=== PATIENT | female | born 1945 | race Hispanic/Latino ===

== ENCOUNTER 2017-02-14 08:20 | Outpatient (CLI) | payer MEDICARE, OTHER ==
--- NOTE | 2017-02-14 10:42 | Mammography Report ---
BONE DEXA:02/14/17 08:20:00 CLINICAL: Postmenopausal.History of left breast cancer and on aromatase inhibitor. TECHNIQUE: Two site bone DEXA performed on an [employer] scanner. FINDINGS: The average BMD of the lumbar spine L1-L4 is 0.790g/cm squared with a T-score of -2.3 and a Z-score of and a 0.2. The average BMD of the right hip is 0.812g/cm squared with a T-score of -1.1 and a Z-score of +0.5. IMPRESSION: WHO classification: Osteopenia with increased fracture risk based on both spine and right hip measurements. RECOMMENDATION: Clinical correlation and routine screening. DEFINITIONS: BMD = Bone Mineral Density T-score = BMD related to mean peak bone mass of young adult (mean expressed in Standard Deviation) Z-score = Age matched BMD expressed in SD World Health Organization (WHO) Diagnostic Criteria Normal T-score > -1 SD Osteopenia T-score between -1 and -2.4 SD Osteoporosis T-score -2.5 SD or below NOTE: BMD is not the only risk factor for fracture. One should also consider factors such as the patient's age, risk of falling, previous osteoporotic fracture, family history of osteoporotic fractures, current smoker, and low body weight. Z-scores are not calculated if >80 years of age.
== END 2017-02-14 08:21 | disposition home or self-care (01) ==
LOC: SPVWC 08:20
PROVIDERS: ATTEND Internal Medicine Hematology & Oncology
DX: M85.89 Other specified disorders of bone density and structure, multiple sites (principal); Z78.0 Asymptomatic menopausal state; Z85.3 Personal history of malignant neoplasm of breast
CPT/HCPCS: 77080

== ENCOUNTER 2017-12-27 10:39 | Outpatient (CLI) | payer MEDICARE, OTHER ==
--- NOTE | 2017-12-27 14:54 | XRay Report ---
XRAY LEFT HIP THREE VIEWS: 12/27/17 10:39:00 CLINICAL: Left hip pain. FINDINGS: Status post left total hip replacement with normal appearance of the prosthesis. No apparent loosening. No acute fracture or dislocation. The avulsed lesser trochanter of the left femur lies medial to the left femoral prosthesis. The pelvic bones are intact. Mild arthritis of the right hip. 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 Soft tissues are normal. IMPRESSION: Status post left total hip replacement. Mild arthritis of the right hip.
== END 2017-12-27 10:40 | disposition home or self-care (01) ==
LOC: SPVIMAG 10:39
PROVIDERS: ATTEND Orthopaedic Surgery Sports Medicine
DX: M25.552 Pain in left hip (principal); Z96.642 Presence of left artificial hip joint

== ENCOUNTER 2019-02-14 13:23 | Outpatient (CLI) | payer MEDICARE, OTHER ==
--- NOTE | 2019-02-14 14:50 | Mammography Report ---
BONE DEXA:02/14/19 13:23:00 CLINICAL: Postmenopausal. History of left breast cancer on an aromatase inhibitor and on biphosphonate. COMPARISON: 06/16/17 TECHNIQUE: Two site bone DEXA performed on an [employer] scanner. FINDINGS: The average BMD of the lumbar spine L1-L4 is 0.857g/cm squared with a T-score of -1.7 and a Z-score of +0.6. This compares to 0.790g/cm squared on the last exam and represents a +8.5% change from the previous baseline. The average BMD of the right hip is 0.830g/cm squared with a T-score of -0.9 and a Z-score of +0.8. This compares to 0.812g/cm squared on the last exam and represents a +2.2% change from the previous baseline. The right femoral neck BMD is 0.729g/cm squared with a T score of -1.1 and a Z score of +0.9 IMPRESSION: 1. WHO classification: Osteopenia with increased fracture risk based on both spine and right hip measurements. 2. A significant improvement in spine BMD compared to the last exam and a more modest improvement in right hip BMD compared to the last exam. RECOMMENDATION: Clinical correlation and routine screening. DEFINITIONS: BMD = Bone Mineral Density T-score = BMD related to mean peak bone mass of young adult (mean expressed in Standard Deviation) Z-score = Age matched BMD expressed in SD World Health Organization (WHO) Diagnostic Criteria Normal T-score > -1 SD Osteopenia T-score between -1 and -2.4 SD Osteoporosis T-score -2.5 SD or below NOTE: BMD is not the only risk factor for fracture; also consider factors such as the patient's age, risk of falling, previous osteoporotic fracture, family history of osteoporotic fractures, current smoker, and low body weight. Z-scores are not calculated if >80 years of age.
== END 2019-02-14 13:24 | disposition home or self-care (01) ==
LOC: SPVWC 13:23
PROVIDERS: ATTEND Internal Medicine Hematology & Oncology
DX: M85.88 Other specified disorders of bone density and structure, other site (principal); C50.412 Malignant neoplasm of upper-outer quadrant of left female breast; Z78.0 Asymptomatic menopausal state
CPT/HCPCS: 77080